=== PATIENT | female | born 1980 | race Caucasian/White ===

== ENCOUNTER 2017-02-02 11:29 | Emergency (ER) | payer OTHER ==
[2017-02-02] MEDS ORDERED: MOTRIN 600 MG PO ONE (11:40)
[2017-02-02] MEDS ORDERED: MOTRIN 600 MG ONE (11:46)
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
--- NOTE | 2017-02-02 12:14 | XRAY ---
Indication: Pain following stepping injury. Comparison: September 20, 2014. 3 nonweightbearing views of the right foot demonstrates stable posterior heel spur and medial midfoot postsurgical changes with intact hardware. No new/acute findings.
--- NOTE | 2017-02-02 12:17 | XRAY ---
Indication: Pain following stepping injury. Comparison: September 20, 2014. 3 views of the right ankle demonstrates stable posterior heel spur and medial foot postsurgical changes. No new/acute findings.
[2017-02-02 12:44] VITALS: BP 108/73; PULSE 89; O2SAT 95
== END 2017-02-02 12:45 | disposition home or self-care (01) ==
LOC: ED 11:29
DX: S93.401A Sprain of unspecified ligament of right ankle, initial encounter (principal); X50.0XXA Overexertion from strenuous movement or load, initial encounter; E78.00 Pure hypercholesterolemia, unspecified; E11.9 Type 2 diabetes mellitus without complications; Z79.84 Long term (current) use of oral hypoglycemic drugs; Z79.4 Long term (current) use of insulin; Z79.899 Other long term (current) drug therapy
CPT/HCPCS: 73610; 73630; 99283; A9270-GY

== ENCOUNTER 2019-08-07 10:27 | Emergency (ER) | payer OTHER ==
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
[2019-08-07 11:28] VITALS: PULSE 98
[2019-08-07] MEDS ORDERED: TORAdol 30 mg Injection IM ONE (11:49)
[2019-08-07 11:53] VITALS: BP 141/95
[2019-08-07] MEDS ORDERED: TORAdol 30 mg Injection ONE (11:53)
[2019-08-07 11:54] VITALS: O2SAT 99
--- NOTE | 2019-08-07 19:53 | XRAY ---
Indication: Pain following fall. Comparison: None 3 views of the sacrum/coccyx demonstrates minimally angulated proximal coccyx fracture. Incidental right pelvic phleboliths and anterior ventral mesh graft. No other bony, articular, or soft tissue abnormalities.
--- NOTE | 2019-08-07 19:54 | XRAY ---
Indication: Pain following fall. Comparison: Left foot exam July 07, 2017. 3 views of the left great toe now demonstrates tiny nondisplaced corner fracture base proximal phalanx laterally. No other bony, articular, or soft tissue abnormalities. Comment: Fracture not reported by interpreting ER clinician. Telephone report given to Dr. Rider in the ER at 1949 hrs. on August 07, 2019.
== END 2019-08-07 12:27 | disposition home or self-care (01) ==
LOC: ED 10:27
DX: S32.2XXA Fracture of coccyx, initial encounter for closed fracture (principal); M79.675 Pain in left toe(s); M79.89 Other specified soft tissue disorders; W19.XXXA Unspecified fall, initial encounter; E11.9 Type 2 diabetes mellitus without complications; F41.9 Anxiety disorder, unspecified; F32.9 Major depressive disorder, single episode, unspecified; F12.90 Cannabis use, unspecified, uncomplicated; Z72.89 Other problems related to lifestyle
CPT/HCPCS: 72220; 73660; 96372; 99284; J1885

== ENCOUNTER 2019-12-15 16:34 | Emergency (ER) | payer OTHER ==
[2019-12-15 16:57] VITALS: BP 153/95; PULSE 114; O2SAT 100
[2019-12-15] MEDS ORDERED: Cleocin Phosphate IV 600 MG/4 ML IM STA (17:02)
[2019-12-15] MEDS ORDERED: Cleocin Phosphate IV 600 MG/4 ML ONE (17:07)
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
== END 2019-12-15 18:05 | disposition home or self-care (01) ==
LOC: ED 16:34
DX: L03.90 Cellulitis, unspecified (principal); R23.4 Changes in skin texture; S50.862A Insect bite (nonvenomous) of left forearm, initial encounter; W57.XXXA Bitten or stung by nonvenomous insect and other nonvenomous arthropods, initial encounter; E11.9 Type 2 diabetes mellitus without complications; Z79.899 Other long term (current) drug therapy; Z79.84 Long term (current) use of oral hypoglycemic drugs; Z79.4 Long term (current) use of insulin; E78.00 Pure hypercholesterolemia, unspecified
CPT/HCPCS: 96372; 99283

== ENCOUNTER 2022-07-24 18:46 | Emergency (ER) | payer OTHER ==
[2022-07-24] MEDS ORDERED: Sodium Chloride 0.9% 1000 ML 1,000 ML IV STA (19:29)
[2022-07-24] MEDS ORDERED: Sodium Chloride 0.9% 1000 ML 1,000 ML ONE (19:39)
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
[2022-07-24 19:49] LABS: VBG CARBOXYHEMOGLOBIN 5.5 % T HGB (0.0-6.9); VBG HCO3- 24.8 meq/L (22-28); VBG HEMOGLOBIN 14.8; VBG O2 SATURATION 58.8 (95-100); VBG POTASSIUM 3.5 (3.5-5.1); VBG pH 7.4 (7.32-7.42)
[2022-07-24 19:50] LABS: Appearance Clear (Clear); Bacteria None Seen /HPF (None Seen); Bilirubin Negative (Negative); Blood Negative (Negative); Epithelial Cells None Seen /HPF (None Seen); Glucose, Urine >=1000 mg/dL (Negative); Hyaline Casts NONE SEEN /LPF (0-2); Ketones Negative (Negative); Leukocyte Esterase Negative (Negative); Nitrite Negative (Negative); Ph 6.5 (4.6-8.0); Protein,Urine Dip Negative (Negative); RBC 0-2 /HPF (0-5); Specific Gravity >=1.030 (1.005-1.030); Urobilinogen 0.2 mg/dL (0.2)
[2022-07-24 19:51] LABS: Absolute Neutrophil Ct (ANC) 5.42 x10^3/uL (1.4-6.9); Basophil (Absolute #) 0.04 x10^3/uL (0-0.4); Eosinophil % 1.1 % (0.00-5.0); Hematocrit 42.8 % (35-47); Hemoglobin 14.1 g/dL (12.0-16.0); Lymphocyte (Absolute #) 2.82 x10^3/uL (1.0-4.6); Lymphocytes % 31.1 % (24.0-44.0); Mean Corpuscular Hemoglobin 30.3 pg (26-32); Mean Corpuscular Hgb Concent. 32.9 g/dL (32-36); Mean Platelet Volume 9.6 fL (7.5-11.0); Monocyte (Absolute #) 0.65 x10^3/uL (0.0-1.3); Monocytes % 7.2 % (0.0-12.0); Neutrophil % 59.8 % (36.0-66.0); Platelet Count 336 x10^3/uL (150-450); Red Blood Count 4.65 x10^6/uL (4.1-5.4); Red Cell Distribution Width 13.7 % (11.5-14.0); White Blood Count 9.1 x10^3/uL (4.0-10.5)
[2022-07-24 19:55] LABS: ADD URINE CULTURE? NO (NO)
[2022-07-24 20:05] LABS: ALBUMIN 3.8 g/dL (3.5-5.0); ALKALINE PHOSPHATASE 116 U/L (38-126); BLOOD UREA NITROGEN 5 mg/dL (7-17); CHLORIDE 100 mmol/L (98-107); Calcium 8.2 mg/dL (8.4-10.2); Carbon Dioxide 25 mmol/L (22-30); Creatinine 1 0.45 mg/dL (0.52-1.04); EST GLOMERULAR FILTRATION RATE > 60.0 ML/MIN; Glucose 389 mg/dL (74-106); MAGNESIUM 1.9 mg/dL (1.6-2.3); Potassium 3.6 mmol/L (3.5-5.1); SGOT/AST 20 U/L (14-36); SGPT/ALT 26 U/L (0-35); SODIUM 132 mmol/L (137-145); Total Protein 6.7 g/dL (6.3-8.2)
[2022-07-24] MEDS ORDERED: HUMULIN R IV ONE (21:39)
[2022-07-24] MEDS ORDERED: HUMULIN R ONE (21:48)
[2022-07-24 22:24] VITALS: BP 136/77; PULSE 117; O2SAT 98
== END 2022-07-24 22:24 | disposition home or self-care (01) ==
LOC: ED 18:46
DX: O24.111 Pre-existing type 2 diabetes mellitus, in pregnancy, first trimester (principal); E11.65 Type 2 diabetes mellitus with hyperglycemia; R35.0 Frequency of micturition; E11.42 Type 2 diabetes mellitus with diabetic polyneuropathy; E78.5 Hyperlipidemia, unspecified; Z79.4 Long term (current) use of insulin; Z79.85 Long-term (current) use of injectable non-insulin antidiabetic drugs; Z28.310 Unvaccinated for COVID-19; Z72.0 Tobacco use
CPT/HCPCS: 36415; 80053; 81001; 82805; 82947; 83605; 83735; 84702; 84703; 85025; 96360; 96374; 96376; 99284; J1815

== ENCOUNTER 2022-09-10 10:18 | Emergency (ER) | payer OTHER ==
[2022-09-10 11:10] LABS: Absolute Neutrophil Ct (ANC) 6.05 x10^3/uL (1.4-6.9); BASOPHIL % 0.3 % (0.0-0.4); Basophil (Absolute #) 0.03 x10^3/uL (0-0.4); Eosinophil (Absolute #) 0.09 x10^3/uL (0-0.5); Hematocrit 38.3 % (35-47); Hemoglobin 13.1 g/dL (12.0-16.0); IMMATURE GRAN # 0.03 x10^3u/L (0.00-0.03); IMMATURE GRAN % 0.3 % (0.00-0.4); Lymphocyte (Absolute #) 1.86 x10^3/uL (1.0-4.6); Lymphocytes % 21.5 % (24.0-44.0); Mean Cell Volume 90.8 fL (78-100); Mean Corpuscular Hgb Concent. 34.2 g/dL (32-36); Mean Platelet Volume 9.3 fL (7.5-11.0); Monocyte (Absolute #) 0.61 x10^3/uL (0.0-1.3); Neutrophil % 69.9 % (36.0-66.0); Platelet Count 314 x10^3/uL (150-450); Red Blood Count 4.22 x10^6/uL (4.1-5.4); Red Cell Distribution Width 14.2 % (11.5-14.0); White Blood Count 8.7 x10^3/uL (4.0-10.5)
[2022-09-10 11:13] LABS: Appearance Clear (Clear); Bacteria None Seen /HPF (None Seen); Bilirubin Negative (Negative); Blood Negative (Negative); Epithelial Cells Few /HPF (None Seen); Glucose, Urine >=1000 mg/dL (Negative); Hyaline Casts NONE SEEN /LPF (0-2); Ketones Negative (Negative); Leukocyte Esterase Negative (Negative); Nitrite Negative (Negative); Ph 5.5 (4.6-8.0); Protein,Urine Dip 100 (Negative); RBC 0-2 /HPF (0-5); Specific Gravity >=1.030 (1.005-1.030); WBC 0-2 /HPF (0-5)
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
[2022-09-10 11:28] LABS: BLOOD UREA NITROGEN 4 mg/dL (7-17); CHLORIDE 102 mmol/L (98-107); Calcium 8.5 mg/dL (8.4-10.2); Carbon Dioxide 23 mmol/L (22-30); Creatinine 1 0.23 mg/dL (0.52-1.04); EST GLOMERULAR FILTRATION RATE > 60.0 ML/MIN; Glucose 293 mg/dL (74-106); LIPASE 48 U/L (23-300); SODIUM 136 mmol/L (137-145)
[2022-09-10 11:30] LABS: ADD URINE CULTURE? NO (NO)
--- NOTE | 2022-09-10 11:31 | XRAY ---
Indication: First trimester bleeding. Two-dimensional transabdominal early OB ultrasound performed. Comparison: August 08, 2022 Again single intrauterine with mean gestational age 10 weeks 6 days. heart rate 167 BPM. No abnormal subchorionic fluid. No suspicious adnexal mass or free fluid. Impression: Again single viable intrauterine measuring 10 weeks 6 days. Normal progression of . No new/acute findings.
[2022-09-10 11:36] VITALS: BP 129/73; PULSE 112
[2022-09-10] MEDS ORDERED: Klor Con PO ONE ×2 (11:37→11:39)
[2022-09-10 11:47] VITALS: O2SAT 97
== END 2022-09-10 12:04 | disposition home or self-care (01) ==
LOC: ED 10:18
DX: O20.9 Hemorrhage in early pregnancy, unspecified (principal); O24.111 Pre-existing type 2 diabetes mellitus, in pregnancy, first trimester; O09.521 Supervision of elderly multigravida, first trimester; E11.42 Type 2 diabetes mellitus with diabetic polyneuropathy; Z3A.11 11 weeks gestation of pregnancy; E78.5 Hyperlipidemia, unspecified; I10 Essential (primary) hypertension; Z79.4 Long term (current) use of insulin; Z79.84 Long term (current) use of oral hypoglycemic drugs; Z79.85 Long-term (current) use of injectable non-insulin antidiabetic drugs; Z79.899 Other long term (current) drug therapy; Z28.310 Unvaccinated for COVID-19; Z72.0 Tobacco use
CPT/HCPCS: 36415; 76816; 80048; 81001; 83690; 84702; 85025; 99283; A9270-GY

== ENCOUNTER 2023-07-30 17:09 | Emergency (ER) | payer MEDICAID ==
[2023-07-30 17:38] VITALS: RESP 18; TEMP 97; O2SAT 97
[2023-07-30 18:17] LABS: INFLUENZA A NEGATIVE (NEGATIVE); RESPIRATORY SYNCTIAL VIRUS NEGATIVE (NEGATIVE); SARS-CoV-2 Xpert Express NEGATIVE (NEGATIVE)
[2023-07-30 18:22] LABS: INFLUENZA B POSITIVE (NEGATIVE)
[2023-07-30] MEDS ORDERED: Tamiflu 75MG Capsule PO ONE ×2 (18:36→18:37)
[2023-07-30 18:40] VITALS: BP 108/72; PULSE 96
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
--- NOTE | 2023-07-31 08:50 | XRAY ---
Indication: Cough and congestion. Comparison: None Portable chest demonstrates normal heart, lungs, and bony thorax.
== END 2023-07-30 18:45 | disposition home or self-care (01) ==
LOC: ED 17:09
DX: J10.1 Influenza due to other identified influenza virus with other respiratory manifestations (principal); R05.9 Cough, unspecified; M79.10 Myalgia, unspecified site; R11.0 Nausea; E78.5 Hyperlipidemia, unspecified; I10 Essential (primary) hypertension; E11.42 Type 2 diabetes mellitus with diabetic polyneuropathy; Z79.4 Long term (current) use of insulin; Z79.84 Long term (current) use of oral hypoglycemic drugs; Z79.85 Long-term (current) use of injectable non-insulin antidiabetic drugs; Z28.310 Unvaccinated for COVID-19; Z72.0 Tobacco use
CPT/HCPCS: 0241U; 71045; 99283; A9270-GY